=== PATIENT | female | born 1990 | race Caucasian/White ===

== ENCOUNTER → 2018-05-18 | Outpatient (CLI) | payer OTHER ==
[2016-10-28 19:51] VITALS: BMI 18.4
[~2018-05-18] MED LIST: CYCL10TA29 PO; DEXA2TAB7 PO; DIA5 PO; HYDR-3104 PO; HYDR-317 PO; HYDR2TAB42 PO; IBU600 PO; IBUP-56 PO; LEVO-85 PO; LIDO20SO25 MM; LOR5/325 PO; METR-160 PO; MIRENA; ONDA4TAB9 SL; ONDA4TAB97 PO; ONDA8TAB94 PO; OXYC-865 PO; OXYC-870 PO; PRED20TA6 PO; PROM12.546 PO; VANC125C10 PO
== END ==
LOC: LAB 15:41
PROVIDERS: ATTEND Internal Medicine
DX: N91.2 Amenorrhea, unspecified (principal)
CPT/HCPCS: 36415; 84703

== ENCOUNTER 2018-10-16 09:33 | Emergency (ER) | payer OTHER ==
[2016-10-28 19:51] VITALS: Wt 52.2 kg
[~2018-10-16 09:33] MED LIST changes: -METR-160 PO; +METR500T15 PO
[2018-10-16] MEDS ORDERED: APAP/HYDROCODONE 325/7.5 TAB PO ONE (10:50)
[2018-10-16] MEDS ORDERED: DIAZEPAM 5 MG TAB PO ONE (10:50)
--- NOTE | 2018-10-16 10:57 | ER Report ---
History and Physical Time Seen By MD: 10:35 Hx. of Stated Complaint: BACK PAIN HPI/ROS CHIEF COMPLAINT: Back pain and weakness HISTORY OF PRESENT ILLNESS: 28-year-old female with known herniated lumbar disc who is scheduled for surgery this coming Monday with Dr. Ramos, presents with back pain and right leg heaviness and paresthesias. Patient states that this is been gradually increasing, but has had times where she has felt so weak or unstable that she could not walk or bear weight. She states that she called the surgeon's office yesterday and was started on tramadol but this has not helped. She notes no incontinence, no perineal paresthesias, 10 out of 10 back pain. She has not fallen or had further recent trauma. She has no fevers, chills, chest pain, nausea, vomiting. Normal bowel movements. REVIEW OF SYSTEMS: Constitutional: No fever, no chills. Eyes: no blurred vision ENT: No sore throat. Cardiovascular: No chest pain, no palpitations. Respiratory: No cough, no shortness of breath. Gastrointestinal: No abdominal pain, no vomiting. Genitourinary: no dysuria Musculoskeletal: above, weakness, right leg Skin: No rashes. Neurological: No headache. Remainder of the 14 system rev: Yes Allergies: Coded Allergies: No Known Drug Allergies (Unverified , 10/16/18) Home Meds No Active Prescriptions or Reported Meds Reviewed Nurses Notes: Yes Hx Smoking: No Smoking Status: Never Smoker Exposure to Second Hand Smoke?: No Hx Substance Use Disorder: No Hx Alcohol Use: Yes Constitutional Vital Sign - Last 24 Hours 10/16/18 10/16/18 10/16/18 10/16/18 09:41 09:45 10:00 10:03 Temp 97.7 Pulse 65 67 Resp 15 B/P (MAP) 120/77 (91) 120/77 98/73 (81) Pulse Ox 93 94 O2 Delivery Room Air 10/16/18 10/16/18 10/16/18 10/16/18 10:30 10:33 11:00 11:03 Pulse 72 71 B/P (MAP) 104/62 (76) 93/60 (71) Pulse Ox 93 92 10/16/18 10/16/18 11:46 11:47 Pulse 53 B/P (MAP) 92/63 (73) Pulse Ox 91 Physical Exam General Appearance: The patient is alert, has no immediate need for airway protection and no signs of toxicity. Eyes: Pupils equal and round no pallor or injection. ENT, Mouth: Mucous membranes are moist. Respiratory: There are no retractions, lungs are clear to auscultation. Cardiovascular: Regular rate and rhythm. Gastrointestinal: Abdomen is soft and non tender, no masses, bowel sounds normal. Neurological: Cranial nerves grossly intact. Left lower extremity 5 out of 5 muscle strength throughout. Right lower extremity 4+ out of 5 muscle strength hip flexion, foot dorsiflexion, foot plantar flexion. Sensation intact throughout. Specifically, light touch intact, pinprick intact at L5 bilaterally, L3, L4, and perineal. Rectal tone normal. Normal Babinski bilaterally. Normal proprioception. Skin: Warm and dry, no rashes. Musculoskeletal: Extremities are nontender, nonswollen and have full range of motion except as above. L3-5 ttp, bilateral paraspinal ttp. DIFFERENTIAL DIAGNOSIS: After history and physical exam differential diagnosis was considered for cauda equina, new fracture, infection, muscle spasm. Medical Decision Making ED Course/Re-evaluation ED Course 28-year-old female scheduled for spine surgery on Monday. Presents with worsening pain, right-sided paresthesias and sensation of weakness. Her findings are equivocal for cauda equina. Discussed risk and benefits of MRI. At this point, we'll MRI and pain control and reassess. MRI without changes as compared to September 27. After reassessment patient only slightly improved. I offered trigger point injections. Patient agreed to this. Both injections showed moderate relief. Patient is now pain-free lying in bed. Though she does have co ntinued pain upon movement. At this point she is comfortable to go home. We'll discharge with strict return cautions and she will follow up with spine surgeon. Procedure Trigger point injection; after discussion of r/b I obtained verbal consent for trigger point injection. I located points of maximal tenderness; lumbar paraspinal bilateral to L4. I injected 5mL of 50% combination of 0.5% marcaine and 1% lidocaine bilaterally. Pt tolerated well without complications. She had minimal relief. Decision to Disposition Date: Oct 16, 2018 Decision to Disposition Time: 12:31 Depart Departure Latest Vital Signs Vital Signs Date Time Temp Pulse Resp B/P (MAP) Pulse Ox O2 Delivery O2 Flow Rate FiO2 10/16/18 11:47 53 91 10/16/18 11:46 92/63 (73) 10/16/18 09:45 97.7 15 Room Air Impression: Primary Impression: Low back pain Condition: Condition Unchanged Disposition: HOME OR SELF-CARE New Scripts Diazepam (VALIUM) 5 Mg Tablet 5 MG PO Q8H for Muscle Relaxant, #15 TAB Prov: MADHAVI DILLARD MD 10/16/18 Patient Instructions: Acute Low Back Pain (ED) Additional Instructions: As we discussed, I recommend you contact your surgeon to discuss further pain control and recommendations. Please return for new numbness, weakness, fevers, or other concerns. Problem Qualifiers Primary Impression: Low back pain Chronicity: acute Back pain laterality: bilateral Sciatica presence: without sciatica Qualified Codes: M54.5 - Low back pain MADHAVI DILLARD MD Oct 16, 2018 10:56
--- NOTE | 2018-10-16 12:10 | RADIOLOGY IMAGING REPORT ---
FACILITY: [facility] - [place] PATIENT NAME: Simi Salinas : 1990 MR: [id number] V: [id number] EXAM DATE: ORDERING PHYSICIAN: MADHAVI DILLARD TECHNOLOGIST: Location: [facility] [place] Patient: Simi Salinas : 1990 Visit/Account:[id number] Date of Sevice: 10/16/2018 Study: MRI lumbar spine without gadolinium contrast. Indication: Increased right-sided weakness Comparison study: 09/26/2018 Technique:Multiplanar MRI sequences were obtained through the lumbar spine without the use of gadolin ium contrast. Findings:The examination demonstrates the presence of normal alignment of the lumbar vertebrae. There is no abnormal signal identified within the lumbar or sacral vertebrae. The conus medullaris is located posterior to the T12/L1 disc space level. There is no evidence of abnormality of the lumbar nerve roots. Disc spaces: L1/2:At this level, there is no significant disc pathology. There is no significant neural foraminal stenosis or spinal stenosis. This level is unchanged. L2/3:At this level, there is no significant disc pathology. There is no significant neural foraminal stenosis or spinal stenosis. This level is unchanged. L3/4:At this level, there is no significant disc pathology. There is no significant neural foraminal stenosis or spinal stenosis. This level is unchanged. L4/5: At this level, there is disc desiccation. There is a mild diffuse disc bulge. There is mild f acet and ligamentous hypertrophy. There is no significant neural foraminal stenosis or spinal stenos is present. This level is unchanged as compared to the previous study. L5/S1: At this level, there is a right central disc extrusion. Disc material effaces the ventral rig ht thecal sac. There is mild bilateral neural foraminal stenosis. There is no significant spinal st enosis. This level is unchanged. IMPRESSION: Lower lumbar disc pathology and spondylopathy present as described. There is no signific ant change in the appearance of the lumbar spine as compared to the previous study dated 09/26/2018. Please see the body of the report for description of individual disc levels. Report Dictated By: Gurpreet Bolden at 10/16/2018 11:59 AM Report E-Signed By: Gurpreet oBlden at 10/16/2018 12:05 PM WSN:[id number]
[2018-10-16 12:30] VITALS: BP 92/67
[2018-10-16] MEDS ORDERED: DIA5 PO (12:51)
== END 2018-10-16 13:14 | disposition home or self-care (01) ==
LOC: ER 10:23
DX: M54.5 Low back pain (principal)
CPT/HCPCS: 72148; 99284